=== PATIENT | male | born 1950 | race African-American/Black ===

== ENCOUNTER 2020-07-30 20:26 | Emergency (ER) | payer MEDICARE ==
[~2020-07-30] VITALS: Ht 172.7 cm; Wt 78.0 kg
== END 2020-07-30 23:58 | disposition home or self-care (01) ==
LOC: ER 20:30
DX: S00.83XA Contusion of other part of head, initial encounter (principal); W18.30XA Fall on same level, unspecified, initial encounter; Y92.198 Other place in other specified residential institution as the place of occurrence of the external cause; Z93.0 Tracheostomy status
CPT/HCPCS: 70450; 99283